=== PATIENT | female | born 1975 | race Caucasian/White ===

== ENCOUNTER 2019-12-27 09:17 | Emergency (ER) | payer BC ==
[~2019-12-27] VITALS: Ht 167.6 cm; Wt 82.0 kg
--- NOTE | 2019-12-27 09:43 | NUR ---
first contact with pt. pt c/o vaginal bleeding with blood clots. pt also stated"i have abdominal cramping and nausea sometimes." A0. pt's aox4. resps even and unlabored. bp/spo2 monitors in place. call light within reach.
--- NOTE | 2019-12-27 10:01 | NUR ---
pt to us at this time.
[2019-12-27 10:04] LABS: BASOPHILS % (AUTO) 0 % (0-1); EOSINOPHILS % (AUTO) 0 % (1-7); LYMPHOCYTES % (AUTO) 37 % (22-44); MEAN CORPUSCULAR HEMOGLOBIN 32.2 pg (27.0-34.8); MEAN CORPUSCULAR HGB CONC 33.8 g/dL (32.4-35.8); MONOCYTES % (AUTO) 7 % (2-9); NEUTROPHILS % (AUTO) 56 % (42-75); PLATELET COUNT 223 x10^3/uL (130-400); RED BLOOD COUNT 4.01 x10^6/uL (3.82-5.3); RED CELL DISTRIBUTION WIDTH 12.4 % (9.6-15.2)
[2019-12-27 10:11] LABS: MD NO
[2019-12-27 10:15] LABS: ALANINE AMINOTRANSFERASE 18 U/L (12-78); ALBUMIN 3.4 g/dL (3.4-5.0); ANION GAP 4 mmol/L (5-15); CALCIUM 9.1 mg/dL (8.5-10.1); CHLORIDE 112 mmol/L (98-107); CREATININE 0.84 mg/dL (0.55-1.02)
[2019-12-27 10:19] LABS: ALKALINE PHOSPHATASE 50 U/L (45-117); BILIRUBIN,TOTAL 0.3 mg/dL (0.2-1.0)
--- NOTE | 2019-12-27 10:33 | NUR ---
pt back to room from us at this time.
[2019-12-27 10:45] VITALS: BP 132/66
--- NOTE | 2019-12-27 11:32 | NUR ---
pelvic exam done at bedside by pa.
== END 2019-12-27 11:48 | disposition home or self-care (01) ==
LOC: ED 10:42
DX: N93.9 Abnormal uterine and vaginal bleeding, unspecified (principal)
CPT/HCPCS: 36415; 76830; 80053; 84703; 85025; 99284

== ENCOUNTER → 2020-01-10 | Outpatient (CLI) | payer BC ==
[~2020-01-10] MED LIST: ETHI1TAB10 PO; MULT-658 PO; turmeric PO
[2020-01-10 16:29] LABS: BASOPHILS % (AUTO) 0 % (0-1); EOSINOPHILS % (AUTO) 1 % (1-7); LYMPHOCYTES % (AUTO) 40 % (22-44); MEAN CORPUSCULAR HEMOGLOBIN 32.5 pg (27.0-34.8); MEAN CORPUSCULAR HGB CONC 33.8 g/dL (32.4-35.8); MEAN PLATELET VOLUME 8.2 fL (7.4-10.4); MONOCYTES % (AUTO) 5 % (2-9); NEUTROPHILS % (AUTO) 54 % (42-75); PLATELET COUNT 287 x10^3/uL (130-400); RED BLOOD COUNT 4.02 x10^6/uL (3.82-5.3); RED CELL DISTRIBUTION WIDTH 12.9 % (9.6-15.2)
[2020-01-10 16:35] LABS: MD NO
[2020-01-10 16:49] LABS: MICROSCOPIC NOT IND
== END | disposition home or self-care (01) ==
LOC: STAR 14:55
PROVIDERS: ATTEND Obstetrics & Gynecology
DX: Z01.812 Encounter for preprocedural laboratory examination (principal); Z20.828 Contact with and (suspected) exposure to other viral communicable diseases; N94.6 Dysmenorrhea, unspecified; N93.9 Abnormal uterine and vaginal bleeding, unspecified
CPT/HCPCS: 36415; 81003; 84703; 85025; 87635

== ENCOUNTER 2020-01-14 10:20 | Day surgery (SDC) | payer BC ==
[~2020-01-14] VITALS: Ht 167.6 cm; Wt 82.6 kg
[~2020-01-14 10:20] MED LIST changes: +ACETAMINOPHEN 325 MG TABLET PO PRN; +EPHEDRINE 50 MG/ML, 1ML IVPush PRN; +HALOPERIDOL 5 MG/ML IV PRN; +HYDROmorphone 1 MG/ML, 1ML INJ IVPush PRN; +KETOROLAC 30 MG/1 ML IVPush PRN; +LABETALOL 5MG/ML, 20ML IV PRN; +LORazepam 2 MG/ML, 1ML IVPush PRN; +MEPERIDINE/PF 25MG/0.5ML IVPush PRN; +METHOCARBAMOL 1,000 MG in DEXTROSE 5% 100 ML IV PRN; +OXYcodone 5 MG/5 ML ORAL.SOL UDC PO PRN; +PROMETHAZINE 12.5 MG SUPP PR PRN; +hydrALAzine 20 MG/ML, 1ML IV PRN
[2020-01-14 10:35] VITALS: BP 120/77
[2020-01-14 10:40] LABS: HCG UR SG 1.018 (1.003-1.030)
[2020-01-14] MEDS ORDERED: CHLORHEXIDINE 15 ML UDC ONE (10:43)
[2020-01-14] MEDS ORDERED: LACTATED RINGERS 1,000 ML IV SCH (11:00)
[2020-01-14] MEDS ORDERED: CHLORHEXIDINE 15 ML UDC MM ONE (11:00)
[2020-01-14] MEDS ORDERED: BUPIVACAINE/PF 0.25% ONE (11:49)
[2020-01-14] MEDS ORDERED: EPINEPHRINE 1 MG/ML, 1ML ONE (11:49)
[2020-01-14] MEDS ORDERED: SILVER NITRATE STICK TP ONE (11:49)
[2020-01-14] MEDS ORDERED: FENTANYL PF 250 MCG/5ML ONE (11:53)
[2020-01-14] MEDS ORDERED: PROPOFOL 50 ML ONE (12:00)
[2020-01-14] MEDS ORDERED: FENTANYL PF 100 MCG/2ML ONE (12:53)
[2020-01-14] MEDS ORDERED: KETOROLAC 30 MG/1 ML ONE (12:53)
[2020-01-14] MEDS: FENTANYL PF 100 MCG/2ML IV PRN ×2 (13:00→13:06)
[2020-01-14] MEDS ORDERED: OXYcodone/APAP 5/325MG TABLET ONE (14:14)
[2020-01-14] MEDS ORDERED: OXYcodone/APAP 5/325MG TABLET PO PRN (14:30)
[2020-01-14] MEDS ORDERED: METOCLOPRAMIDE 5 MG/ML, 2ML ONE (16:36)
[2020-01-14] MEDS ORDERED: PROPOFOL 10 MG/ML, 20ML ONE (16:36)
[2020-01-14] MEDS ORDERED: ONDANSETRON 2MG/ML, 2ML ONE (16:36)
[2020-01-14] MEDS ORDERED: CEFAZOLIN 1,000 MG ONE (16:36)
== END 2020-01-14 14:30 | disposition home or self-care (01) ==
LOC: OUT 10:20
PROVIDERS: ATTEND Obstetrics & Gynecology
DX: N93.8 Other specified abnormal uterine and vaginal bleeding (principal); N94.6 Dysmenorrhea, unspecified; M19.90 Unspecified osteoarthritis, unspecified site; F12.90 Cannabis use, unspecified, uncomplicated; Z79.899 Other long term (current) drug therapy; Z98.890 Other specified postprocedural states; Z82.49 Family history of ischemic heart disease and other diseases of the circulatory system; Z80.3 Family history of malignant neoplasm of breast; Z80.0 Family history of malignant neoplasm of digestive organs
CPT/HCPCS: 58563; 81025; 88305; J0690; J1885; J2405; J2704; J2765; J3010; J7120; J0171